=== PATIENT | female | born 1960 | race Two or more races ===

== ENCOUNTER 2024-04-24 14:35 | Emergency (ER) | payer SELFPAY ==
[~2024-04-24] VITALS: Ht 157.5 cm; Wt 79.5 kg
--- NOTE | 2024-04-24 15:21 | ED.PDOC ---
History of Present Illness HPI Comments 63 year old female presents to the ED with a chief complaint of anxiety onset 1 month. Patient states her about 1 month ago and since then has been experiencing anxiety, loss of appetite, lost about 30 lbs, cannot sleep and has not taken bipolar medication since then. Patient states she was dropped off by grandson to ED due to symptoms. PMHx bipolar disorder. Denies suicidal ideation, homicidal ideation, headache, dizziness, nausea, vomiting, diarrhea, cough, congestion. No other symptoms or modifying factors present at this time. Time Seen by MD: 15:00 Reviewed Notes: Medications, Allergies Information Source: Patient Mode of Arrival: Ambulatory Severity: Moderate Timing: Months Duration: Since onset Prehospital treatment: None Past Medical History Past Medical History (Other): Bipolar disorder Surgical History: Denies all surgeries BLOOD DONOR RECRUITER SUPERVISOR History: No Pertinent BLOOD DONOR RECRUITER SUPERVISOR History Family History Family History: Unknown Social History Smoker: Non-Smoker Alcohol: Denies ETOH Use Drugs: Denies Drug Use Lives In: Home Constitutional: denies: chills, diaphoresis, fatigue, fever, malaise, sweats, weakness, others EENTM: denies: blurred vision, double vision, ear bleeding, ear discharge, ear drainage, ear pain, ear ringing, eye pain, eye redness, hearing loss, mouth pain, mouth swelling, nasal discharge, nose bleeding, nose congestion, nose pain, photophobia, tearing, throat pain, throat swelling, voice changes, others Respiratory: denies: cough, hemoptysis, orthopnea, SOB at rest, shortness of breath, SOB with excertion, stridor, wheezing, others Cardiovascular: denies: chest pain, dizzy spells, diaphoresis, Dyspnea on exertion, edema, irregular heart beat, left arm pain, lightheadedness, palpitations, PND, syncope, others Gastrointestinal: reports: poor appetite; denies: abdomen distended, abdominal pain, blood streaked bowels, constipated, diarrhea, dysphagia, difficulty swallowing, hematemesis, melena, nausea, poor fluid intake, rectal bleeding, rectal pain, vomiting, others Genitourinary: denies: abnormal vagina bleeding, burning, dyspareunia, dysuria, flank pain, frequency, hematuria, incontinence, pain, , vagina discharge, urgency, others Neurological: denies: dizziness, fainting, headache, left sided numbness, left sided weakness, numbness, paresthesia, pre-existing deficit, right sided numbness, right sided weakness, seizure, speech problems, tingling, tremors, weakness, others Musculoskeletal: denies: back pain, gout, joint pain, joint swelling, muscle pain, muscle stiffness, neck pain, others Integumetry: denies: bruises, change in color, change in hair/nails, dryness, laceration, lesions, lumps, rash, wounds, others Allergic/Immunocompromised: denies: Difficulty Healing, Frequent Infections, Hives, Itching, others Hematologic/Lymphatic: denies: anemia, blood clots, easy bleeding, easy bruising, swollen glands, others Endocrine: denies: excessive hunger, excessive sweating, excessive thirst, excessive urination, flushing, intolerance to cold, intolerance to heat, unexplained weight gain, unexplained weight loss, others Psychiatric: reports: anxiety, bipolar disorder; denies: depression, hopeless, panic disorder, schizophrenia, sleepless, suicidal, others All Other Systems: Reviewed and Negative Physical Exam General Appearance: Moderate Distress, Normal HEENT: Normal ENT Inspection, Pharynx Normal, TMs Normal Neck: Full Range of Motion, Non-Tender, Normal, Normal Inspection Respiratory: Chest Non-Tender, Lungs Clear, No Accessory Muscle Use, No Respiratory Distress, Normal Breath Sounds Cardiovascular: No Edema, No JVD, No Murmur, No Gallop, Normal Peripheral Pu lses, Regular Rate/Rhythm Breast Exam: Deferred Gastrointestinal: No Organomegaly, Non Tender, No Pulsatile Mass, Normal Bowel Sounds, Soft Genitalia: Deferred Pelvic: Deferred Rectal: Deferred Extremities: No calf tenderness, Normal capillary refill, Normal inspection, Normal range of motion, Non-tender, No pedal edema Musculoskeletal : Apperance: Normal Neurologic: Alert, machine setter II-XII nml as Tested, No Motor Deficits, Normal Affect, Normal Mood, No Sensory Deficits Cerebellar Function: Normal Reflexes: Normal Skin: Dry, Normal Color, Warm Peripheral Pulses: 3+ Radial (R), 3+ Radial (L) Lymphatic: No Adenopathy Was a procedure done? Was a procedure done?: No Differential Dx Considerations may include: Depression Electrolyte imbalance X-Ray, Labs, Meds, VS Patient alert. Has a history of psychiatric illness. Vitals stable. Answering questions. She recently lost a loved one. She is not taking her bipolar medication. Denies suicidal or homicidal ideation. Medically cleared. Psychiatric evaluation. Time of 1ST Reevaluation: 15:30 Reevaluation 1ST: Improved Patient Education/Counseling: Diagnosis, Treatment, Prognosis Family Education/Counseling: No Family Present Departure 1 Departure Time of Disposition: 15:42 Impression: Primary Impression: Bipolar disorder Qualified Codes: F31.9 - Bipolar disorder, unspecified Disposition: 30 STILL A PATIENT Condition: Good Critical Care Note Critical Care Time?: No Stability Stability form required: No Heart Score Heart Score: Heart Score Response (Comments) Value History N/A 0 EKG N/A 0 Age N/A 0 Risk Factors N/A 0 Troponin N/A 0 Total 0 I personally scribed for VINAY LUNA MD ([email or web address]) on 04/24/24 at 15:21. Electronically submitted by Leydi Lockhart ([email or web address]). VINAY LUNA MD Apr 24, 2024 15:21
[2024-04-24 15:40] VITALS: BP 150/108; PULSE 111; RESP 20; O2SAT 100
[2024-04-24 18:54] LABS: Amphetamine Screen, Urine Neg (NEGATIVE); Barbiturate Scree,Urine Neg (NEGATIVE); Benzodiazephine Screen, Urine Neg (NEGATIVE); Cannabinoid Screen, Urine Neg (NEGATIVE); Cocaine Screen, Urine Neg (NEGATIVE); Opiate Scree,Urine Neg (NEGATIVE); Phencyclidine Screen, Urine Neg (NEGATIVE)
--- NOTE | 2024-04-25 01:14 | DVHINCON2 ---
Date of Service if different f: Apr 25, 2024 Time of Service: 01:05 Consult Consult Note It appears pt has eloped and is no longer in ED Plan discussed with: Other RIN SNELL MD Apr 25, 2024 01:14
== END 2024-04-25 01:12 | disposition left against medical advice (07) ==
LOC: ER 14:35
DX: F31.9 Bipolar disorder, unspecified (principal); F41.9 Anxiety disorder, unspecified; R63.0 Anorexia; Z79.899 Other long term (current) drug therapy
CPT/HCPCS: 80307

== ENCOUNTER 2024-06-17 20:34 | Emergency (ER) | payer SELFPAY ==
[~2024-06-17] VITALS: Ht 154.9 cm; Wt 63.6 kg
--- NOTE | 2024-06-17 20:51 | ED.PDOC ---
History of Present Illness HPI Comments 63-year-old female who came to ER via EMS for alcohol intoxication. Per EMS, family members called them due to behavioral issues of the patient. Patient currently intoxicated with alcohol. Patient states she is depressed due to the of her . Patient had an argument with family members earlier regarding going to [place] however family refused so patient started acting disgruntled and started drinking vodka. Patient denies being suicidal or homicidal. Denies any hallucinations. Blood pressure is 173/100 mmHg. Patient has poor compliance to her blood pressure medications. Chief Complaint: Alcohol intoxication Time Seen by MD: 20:51 Primary Care Provider: unknown Reviewed Notes: Laboratory Tech Notes Allergies: Coded Allergies: Penicillins (Verified Allergy, Severe, anaphylaxis, 04/24/24) Home Meds Active Scripts Cefdinir (Cefdinir) 300 Mg Cap, 1 CAP PO BID for 7 Days, #14 CAP Prov:ASHLEY VERDUGO MD 06/17/24 Information Source: Patient, Emergency Med Personnel Mode of Arrival: EMS Severity: Moderate Timing: Hours Duration: Since onset Prehospital treatment: None Past Medical History PAST MEDICAL HISTORY: HTN Surgical History: Denies all surgeries INCOME TAX MANAGER History: No Pertinent INCOME TAX MANAGER History Family History Family History: Reviewed,noncontributory to illness Social History Smoker: Non-Smoker Alcohol: Heavy Drugs: Denies Drug Use Lives In: Home Constitutional: denies: chills, diaphoresis, fatigue, fever, malaise, sweats, weakness, others EENTM: denies: blurred vision, double vision, ear bleeding, ear discharge, ear drainage, ear pain, ear ringing, eye pain, eye redness, hearing loss, mouth pain, mouth swelling, nasal discharge, nose bleeding, nose congestion, nose pain, photophobia, tearing, throat pain, throat swelling, voice changes, others Respiratory: denies: cough, hemoptysis, orthopnea, SOB at rest, shortness of breath, SOB with excertion, stridor, wheezing, others Cardiovascular: denies: chest pain, dizzy spells, diaphoresis, Dyspnea on exertion, edema, irregular heart beat, left arm pain, lightheadedness, palpitations, PND, syncope, others Gastrointestinal: denies: abdomen distended, abdominal pain, blood streaked bowels, constipated, diarrhea, dysphagia, difficulty swallowing, hematemesis, melena, nausea, poor appetite, poor fluid intake, rectal bleeding, rectal pain, vomiting, others Genitourinary: denies: abnormal vagina bleeding, burning, dyspareunia, dysuria, flank pain, frequency, hematuria, incontinence, pain, , vagina discharge, urgency, others Neurological: denies: dizziness, fainting, headache, left sided numbness, left sided weakness, numbness, paresthesia, pre-existing deficit, right sided numbness, right sided weakness, seizure, speech problems, tingling, tremors, weakness, others Musculoskeletal: denies: back pain, gout, joint pain, joint swelling, muscle pain, muscle stiffness, neck pain, others Integumetry: denies: bruises, change in color, change in hair/nails, dryness, laceration, lesions, lumps, rash, wounds, others Allergic/Immunocompromised: denies: Difficulty Healing, Frequent Infections, Hives, Itching, others Hematologic/Lymphatic: denies: anemia, blood clots, easy bleeding, easy bruising, swollen glands, others Endocrine: denies: excessive hunger, excessive sweating, excessive thirst, excessive urination, flushing, intolerance to cold, intolerance to heat, unexplained weight gain, unexplained weight loss, others Psychiatric: reports: depression, others (Intoxicated with alcohol); denies: anxiety, bipolar disorder, hopeless, panic disorder, schizophrenia, sleepless, suicidal Physical Exam General Appearance: No Apparent Distress, Normal HEENT: Normal ENT Inspection, Pharynx Normal, TMs Normal Neck: Full Range of Motion, Non-Tender, Normal, Normal Inspection Respiratory: Chest Non-Tender, Lungs Clear, No Accessory Muscle Use, No Respiratory Distress, Normal Breath Sounds Cardiovascular: No Edema, No JVD, No Murmur, No Gallop, Normal Peripheral Pulses, Regular Rate/Rhythm Breast Exam: Deferred Gastrointestinal: No Organomegaly, Non Tender, No Pulsatile Mass, Normal Bowel Sounds, Soft Genitalia: Deferred Pelvic: Deferred Rectal: Deferred Extremities: No calf tenderness, Normal capillary refill, Normal inspection, Normal range of motion, Non-tender, No pedal edema Musculoskeletal : Apperance: Normal Neurologic: Alert, starch crab II-XII nml as Tested, No Motor Deficits, Normal Affect, Normal Mood, No Sensory Deficits Cerebellar Function: Normal Reflexes: Normal Skin: Dry, Normal Color, Warm Lymphatic: No Adenopathy Was a procedure done? Was a procedure done?: No Differential Dx Considerations may include: Anxiety, depression, alcohol intoxication X-Ray, Labs, Meds, VS Vital Signs Date Time Temp Pulse Resp B/P (MAP) Pulse Ox O2 Delivery O2 Flow Rate FiO2 06/17/24 21:16 101 18 92 Room Air* 0 21 06/17/24 21:16 97.9 101 18 165/96 (119) 92 97.9 06/17/24 20:40 99.1 101 18 173/100 (124) 98 99.1 Lab Test 06/17/24 20:54 06/17/24 20:45 Range/Units White Blood Count 7.5 4.4-10.8 10^3/uL Red Blood Count 5.46 H 4.0-5.20 10^6/uL Hemoglobin 17.2 H 12.2-16.2 g/dL Hematocrit 51.2 H 36.0-46.0 % Mean Corpuscular Volume 93.8 80.0-100.0 fL Mean Corpuscular Hemoglobin 31.5 28.0-32.0 pg Mean Corpuscular Hemoglobin Concent 33.6 32.0-36.0 g/dL Red Cell Distribution Width 12.8 11.8-14.3 % Platelet Count 320 140-450 10^3/uL Mean Platelet Volume 8.2 6.9-10.8 fL Neutrophils (%) (Auto) 68.7 37.0-80.0 % Lymphocytes (%) (Auto) 25.6 10.0-50.0 % Monocytes (%) (Auto) 4.8 0.0-12.0 % Eosinophils (%) (Auto) 0.3 0.0-7.0 % Basophils (%) (Auto) 0.6 0.0-2.0 % Neutrophils # (Auto) 5.1 1.6-8.6 10 ^3/uL Lymphocytes # (Auto) 1.9 0.4-5.4 10 ^3/uL Monocytes # (Auto) 0.4 0-1.3 10 ^3/uL Eosinophils # (Auto) 0 0-0.8 10 ^3/uL Basophils # (Auto) 0 0-0.2 10 ^3/uL Nucleated Red Blood Cells 0.5 % Sodium Level 138 136-145 mmol/L Potassium Level 3.6 3.5-5.1 mmol/L Chloride Level 107 98-107 mmol/L Carbon Dioxide Level 22 20-31 mmol/L Anion Gap 9 5-15 Blood Urea Nitrogen 7 L 9-23 mg/dL Creatinine 0.74 0.550-1.02 mg/dL Glomerular Filtration Rate Calc 90 >90 mL/min BUN/Creatinine Ratio 9.5 L 10.0-20.0 Serum Glucose 95 74-106 mg/dL Calcium Level 10.6 H 8.7-10.4 mg/dL Total Bilirubin 0.2 0.2-1.0 mg/dL Aspartate Amino Transferase (AST) 21 13-40 U/L Alanine Aminotransferase (ALT) 15 7-40 U/L Alkaline Phosphatase 131 H 46-116 U/L Total Protein 8.4 H 5.7-8.2 g/dL Albumin 4.6 3.2-4.8 g/dL Salicylates Level < 3.0 -30 mg/dL Acetaminophen Level < 2.0 L 10.0-20.0 UG/ML Plasma/Serum Blood Alcohol 211.9 H <10 mg/dL Urine Color Colorless Yellow Urine Clarity Clear Clear Urine pH 5.5 5.0-9.0 Urine Specific [place] 1.004 1.001-1.035 Urine Protein Negative Negative Urine Ketones Negative Negative Urine Blood Negative Negative /uL Urine Nitrite Negative Negative Urine Bilirubin Negative Negative Urine Urobilinogen Normal Negative mg/dL Urine Leukocyte Esterase 1+ Negative /uL Urine RBC 1 0 - 4 /hpf Urine Microscopic WBC 4 0-5 /HPF Urine Squamous Epithelial Cells None seen <5 /hpf Urine Bacteria Few H None Seen /hpf Urine Glucose Normal Normal mg/dL Time of 1ST Reevaluation: 20:46 Reevaluation 1ST: Unchanged Patient Education/Counseling: Diagnosis, Treatment Family Education/Counseling: No Family Present Departure 1 Departure Time of Disposition: 00:30 Impression: Primary Impression: Alcohol intoxication Additional Impressions: Bipolar disorder UTI (urinary tract infection) Disposition: 01 HOME / SELF CARE / HOMELESS Condition: Stable e-Prescriptions Cefdinir (Cefdinir) 300 Mg Cap 1 CAP PO BID for 7 Days, #14 CAP Prov: ASHLEY VERDUGO MD 06/17/24 Discharged With: Self Critical Care Note Critical Care Time?: No Stability Stability form required: No Heart Score Heart Score: Heart Score Response (Comments) Value History N/A 0 EKG N/A 0 Age N/A 0 Risk Factors N/A 0 Troponin N/A 0 Total 0 I personally scribed for ASHLEY VERDUGO MD ([email or web address]) on 06/17/24 at 20:51. Electronically submitted by Jason Cr ([facility]). I personally scribed for ASHLEY VERDUGO MD ([email or web address]) on 06/17/24 at 20:57. Electronically submitted by Jason Cr ([facility]). ASHLEY VERDUGO MD Jun 17, 2024 20:51
[2024-06-17 21:16] VITALS: BP 165/96; PULSE 101; RESP 18; TEMP 97.9; O2SAT 92
[2024-06-17 21:17] LABS: Basophils # (auto) 0 10 ^3/uL (0-0.2); Basophils % (auto) 0.6 % (0.0-2.0); Eosinophils # (auto) 0 10 ^3/uL (0-0.8); Eosinophils % (auto) 0.3 % (0.0-7.0); Hematocrit 51.2 % (36.0-46.0); Hemoglobin 17.2 g/dL (12.2-16.2); Lymphocytes # (auto) 1.9 10 ^3/uL (0.4-5.4); Lymphocytes % (auto) 25.6 % (10.0-50.0); Mean Corpuscular Hemoglobin 31.5 pg (28.0-32.0); Mean Corpuscular Hgb Conc. 33.6 g/dL (32.0-36.0); Mean Corpuscular Volume 93.8 fL (80.0-100.0); Monocytes # (auto) 0.4 10 ^3/uL (0-1.3); Monocytes % (auto) 4.8 % (0.0-12.0); Neutrophils # (auto) 5.1 10 ^3/uL (1.6-8.6); Neutrophils % (auto) 68.7 % (37.0-80.0); Nucleated Red Blood Cells % 0.5 %; Platelet Count (auto) 320 10^3/uL (140-450); Red Blood Cells 5.46 10^6/uL (4.0-5.20); Red Cell Distribution Width 12.8 % (11.8-14.3); White Blood Cell 7.5 10^3/uL (4.4-10.8)
[2024-06-17] MEDS: cloNIDine HCL 0.1 MG TAB PO ONE (21:21)
[2024-06-17] MEDS: ACETAMINOPHEN 325 MG TAB PO ONE (21:21)
[2024-06-17 21:30] LABS: Urine Bacteria FEW /hpf (None Seen); Urine Blood Negative /uL (Negative); Urine Clarity Clear (Clear); Urine Color Colorless (Yellow); Urine Protein, UAD Negative (Negative); Urine Specific Gravity 1.004 (1.001-1.035); Urine Squamous Epithelial Cell None Seen /hpf (<5); Urine Urobilinogen Normal (Negative); Urine WBC 4 /HPF (0-5); Urine pH 5.5 (5.0-9.0)
[2024-06-17 21:44] LABS: Alanine Aminotransferase 15 U/L (7-40); Albumin 4.6 g/dL (3.2-4.8); Alkaline Phosphatase 131 U/L (46-116); Anion Gap 9 (5-15); Aspartate Aminotransferase 21 U/L (13-40); BUN/Creatinine Ratio 9.5 (10.0-20.0); Bilirubin, Total 0.2 mg/dL (0.2-1.0); Blood Alcohol 211.9 mg/dL (<10); Blood Urea Nitrogen 7 mg/dL (9-23); Calcium 10.6 mg/dL (8.7-10.4); Carbon Dioxide 22 mmol/L (20-31); Chloride 107 mmol/L (98-107); Glucose 95 mg/dL (74-106); Potassium 3.6 mmol/L (3.5-5.1); Sodium 138 mmol/L (136-145); Total Protein 8.4 g/dL (5.7-8.2)
[2024-06-17 21:58] LABS: Acetaminophen < 2.0 UG/ML (10.0-20.0); Salicylate < 3.0 mg/dL (-30)
[2024-06-17] MEDS ORDERED: CEFD300C2 PO (22:27)
== END 2024-06-17 23:40 | disposition home or self-care (01) ==
LOC: EDBD 20:34 → ER 20:34
DX: F10.129 Alcohol abuse with intoxication, unspecified (principal); F31.9 Bipolar disorder, unspecified; N39.0 Urinary tract infection, site not specified; I10 Essential (primary) hypertension; Z88.0 Allergy status to penicillin; Z79.899 Other long term (current) drug therapy; Y90.9 Presence of alcohol in blood, level not specified
CPT/HCPCS: 36415; 80053; 80320; 80329; 81001; 85025

== ENCOUNTER 2025-02-15 01:00 | Emergency (ER) | payer MEDICARE, OTHER ==
[~2025-02-15] VITALS: Ht 160 cm; Wt 59.1 kg
[~2025-02-15 01:00] MED LIST: CEFD300C2 PO
[2025-02-15 02:36] LABS: Hematocrit 47.9 % (36.0-46.0); Hemoglobin 16.4 g/dL (12.2-16.2); Mean Corpuscular Hemoglobin 30.9 pg (28.0-32.0); Mean Corpuscular Volume 90.1 fL (80.0-100.0); Nucleated Red Blood Cells % 0.1 %
[2025-02-15 02:46] LABS: Sodium 140 mmol/L (136-145)
[2025-02-15 02:47] LABS: Anion Gap 7 (5-15); Carbon Dioxide 25 mmol/L (20-31); Chloride 108 mmol/L (98-107); Potassium 3.0 mmol/L (3.5-5.1)
[2025-02-15 02:48] LABS: Calcium 10.2 mg/dL (8.7-10.4)
[2025-02-15 02:52] LABS: BUN/Creatinine Ratio 14.8 (10.0-20.0)
[2025-02-15 02:54] LABS: Blood Urea Nitrogen 9 mg/dL (9-23); Glucose 108 mg/dL (74-106)
--- NOTE | 2025-02-15 03:54 | DVHINCON2 ---
Date of Service if different f: Feb 15, 2025 Time of Service: 03:32 Consult Consult Note PSYCHIATRY ED NEW CONSULT HPI: 64 yo pt with PPH of depression, bipolar, and anxiety presents to ED for med refill of buspar 15 mg qd and quetiapine 200 mg qhs. Psychiatry consulted for safety evaluation and recommendations in context of current presentation Currently rxd above meds for primary tx of depression/anxiety. Tolerating meds without any adverse effects, notes modest therapeutic effects. Denies med misuse/abuse/diversion. Ran out of meds several days ago, has been on current med regimen for several years rxd by previous outpt MH provider. No EPS/TD/NMS/anticholinergic/orthostasis reported. Does not currently have outpt MH services established at this time although in process of establishing care in subsequent months Currently endorses mild depressed mood but denies hopelessness/helplessness, low self-worth, or anhedonia. Denies anxiety/panic/OCD/PTSD symptoms. Also denies AVH/paranoia/catatonic/perceptual disturbances/personality changes. Sleep/appetite/energy/conc are all relatively stable/at baseline. Adamantly denies SI/HI. Denies acute psychosocial stressors although continues to grieve loss of from CVA in 2023 Does not have active outpt MH services established at this time although has sought outpt MH services in recent past but lost connectivity due to insurance issues Currently rxd lamictal 200 mg qd, trazodone 100 mg qhs,buspar 15 mg qd (needs refill), quetiapine 200 mg qhs (needs refill) no prior psych med trials, overall med compliant with modest therapeutic effects, some hx of med noncompliance noted DIPAK hx: Denies ETOH, THC or IDU prior to admission although mild hx of ETOH dependency, last drank over 3 weeks ago SH: with 3 adult children with limited contact, resides with grandson, unemployed, limited support system noted (immediate family). Unknown trauma hx FH: Denies FH of psych hospitalizations, suicide attempts, or completed suicides PMH: +HTN. No acute medical/chronic pain issues, hx of seizures/TBI, HIV/hep C, cardiac dz, or recent head injuries, allergic to PCN Denies hx of SIB/SA/PSG or Several prior psych hospitalizations for depression - last admission in 2023. Denies history of violence, aggression, or assaultive behaviors. Denies any legal problems. Does not have access to firearms. Identifies self/family as PPF. No acute safety concerns noted during encounter MSE: General Appearance/Behavior: Alert/awake; appears stated age, fair grooming/hygiene; calm/polite and cooperative, fair eye contact, no PMA/PMR Speech: coherent, rrr Thought Process: L/L/GD Thought Content: Abnormal Thoughts/Perceptions: denies dissociative symptoms Homicidality / Violent Thoughts: adamantly denies HI Suicidality: adamantly denies SI Hallucinations: denies AVTH Delusions: denies paranoia, persecutory, or grandiose delusions Obsessions /compulsions: None Judgment/Insight: fair/fair Mood & Affect: "bit sad" with mood-congruent, somewhat restricted/appropriate Orientation: oriented x 3 Attention/Concentratit s appears intact Cognition: grossly intact Assessment: 64 yo pt with PPH of depression, bipolar, and anxiety presents to ED for med refill of buspar 15 mg qd and quetiapine 200 mg qhs Currently denies SI/HI/AVH. Linear and appears future oriented in thought with fair J/I, intact reality testing, and genuine in discourse. No overt manic, psychotic, MDD, cognitive, dissociative, panic, OCD, PTSD, or somatic symptoms noted. No hx of SA/SIB/violence/physical aggression is reassuring Does not presently show any signs of immediate danger to self/others or GD that would necessitate 5150 or involuntary psych admission. Acute suicide/violence risk appears nonexistent to relatively low. Chronic risks mitigated by med management, access to psychiatric care, and supportive services Pts symptoms should be managed safely in an outpatient setting - currently does not have psychiatrist/therapist out in community hence recently ran out of above meds, primarily presents to ED seeking med refill of both meds, recommend 30 day rx for both meds with 1 R No indication to change current med regimen Primary Diagnosis: Bipolar disorder unspecified. ETOH use d/o, unspecified Plan: Does not warrant involuntary inpatient psychiatric hospitalization or 5150 hold No acute safety concerns Pt can be safely discharged back to current residence Resume above current outpatient psychotropics - lamictal 200 mg qd, trazodone 100 mg qhs,buspar 15 mg qd (needs refill), quetiapine 200 mg qhs (needs refill) No med changes or additional meds indicated at this time Supportive tx provided Strongly encouraged f/u with outpatient MH providers (upon establishing care) for ongoing therapy/med management Encouraged f/u with PCP for routine medical/preventive care Instructed pt to call/text [phone] or return to ED if MH symptoms worsen or new onset SI/HI upon discharge Pt verbalized understanding and is receptive to above tx plan This case was discussed with ED nurse/provider and all parties in agreement with above tx plan Jeffrey Garsia MD Plan discussed with: Patient JEFFREY GARSIA MD Feb 15, 2025 03:54
--- NOTE | 2025-02-15 03:55 | ED.PDOC ---
History of Present Illness HPI Comments 64-year-old female presents with chief complaint of depression. Significant history for bipolar disorder, depression, and hypertension. Patient reports on, initially, being brought to the ED after entering a depressive episode, this morning, and telling her grandson on having suicidal ideations. Patient takes no medications currently for depression. She denies being suicidal, currently. Denial of any further symptoms, such as auditory or visual hallucinations or homicidal ideations. REVIEW OF SYSTEMS: General: No fever, no chills, HEENT: No neck pain, no blurred vision Cardiac: No chest pain. No palpitations. Lungs: No shortness of breath, GI: No abdominal pain, no vomiting Musculoskeletal: No joint pain , no back pain Skin: No rash, no wound Neuro: No headache, no dizziness, no syncope Psychiatric: Depression PHYSICAL EXAM: General: Awake, alert and oriented. No acute distress. Skin: Skin in warm, dry and intact without rashes or lesions. HEENT: The head is normocephalic and atraumatic. Conjunctivae are clear without exudates or hemorrhage. Sclera is non-icteric. Neck: Normal range of motion. No JVD. Cardiac: Regular rate Respiratory: No signs of respiratory distress. No Stridor. Extremities: Upper and lower extremities are atraumatic in appearance without deformity. Neurological: The patient is awake, alert and oriented to person, place, and time with normal speech. Speech is clear. There is no facial asymmetry. Psychiatric: Appropriate mood and affect. Good judgement and insight. Chief Complaint: Mental Health Time Seen by MD: 01:49 Primary Care Provider: unknown Reviewed Notes: Nurses Notes, Medications, Allergies Allergies: Coded Allergies: Penicillins (Verified Allergy, Severe, anaphylaxis, 04/24/24) Home Meds Active Scripts Cefdinir (Cefdinir) 300 Mg Cap, 1 CAP PO BID for 7 Days, #14 CAP Prov:ASHLEY VERDUGO MD 06/17/24 Information Source: Patient Mode of Arrival: EMS Severity: Moderate Timing: Hours Duration: Since onset Prehospital treatment: None Past Medical History PAST MEDICAL HISTORY: Depression, HTN Past Medical History (Other): Bipolar disorder Surgical History: Denies all surgeries [employer]PER[employer]OR History: No 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 Was a procedure done?: No Differential Dx Considerations may include: Depression, suicidal ideation, adjustment disorder, psychosis, bipolar disorder, other X-Ray, Labs, Meds, VS Vital Signs Date Time Temp Pulse Resp B/P (MAP) Pulse Ox O2 Delivery O2 Flow Rate FiO2 02/15/25 01:05 98.8 76 16 163/102 97 98.8 Lab Test 02/15/25 02:18 Range/Units White Blood Count 5.6 4.4-10.8 10^3/uL Red Blood Count 5.32 H 4.0-5.20 10^6/uL Hemoglobin 16.4 H 12.2-16.2 g/dL Hematocrit 47.9 H 36.0-46.0 % Mean Corpuscular Volume 90.1 80.0-100.0 fL Mean Corpuscular Hemoglobin 30.9 28.0-32.0 pg Mean Corpuscular Hemoglobin Concent 34.3 32.0-36.0 g/dL Red Cell Distribution Width 13.4 11.8-14.3 % Platelet Count 319 140-450 10^3/uL Mean Platelet Volume 7.5 6.9-10.8 fL Neutrophils (%) (Auto) 52.4 37.0-80.0 % Lymphocytes (%) (Auto) 39.9 10.0-50.0 % Monocytes (%) (Auto) 6.7 0.0-12.0 % Eosinophils (%) (Auto) 0.4 0.0-7.0 % Basophils (%) (Auto) 0.6 0.0-2.0 % Neutrophils # (Auto) 3.0 1.6-8.6 10 ^3/uL Lymphocytes # (Auto) 2.3 0.4-5.4 10 ^3/uL Monocytes # (Auto) 0.4 0-1.3 10 ^3/uL Eosinophils # (Auto) 0 0-0.8 10 ^3/uL Basophils # (Auto) 0 0-0.2 10 ^3/uL Nucleated Red Blood Cells 0.1 % Sodium Level 140 136-145 mmol/L Potassium Level 3.0 L 3.5-5.1 mmol/L Chloride Level 108 H 98-107 mmol/L Carbon Dioxide Level 25 20-31 mmol/L Anion Gap 7 5-15 Blood Urea Nitrogen 9 9-23 mg/dL Creatinine 0.61 0.550-1.02 mg/dL Glomerular Filtration Rate Calc 99 >90 mL/min BUN/Creatinine Ratio 14.8 10.0-20.0 Serum Glucose 108 H 74-106 mg/dL Calcium Level 10.2 8.7-10.4 mg/dL Plasma/Serum Blood Alcohol 62.5 H <10 mg/dL Time of 1ST Reevaluation: 03:52 Reevaluation 1ST: Unchanged Patient Education/Counseling: Other (Need for ED observation) Family Education/Counseling: No Family Present SEPSIS Sepsis Screen Date sepsis recognized/suspect: Feb 15, 2025 Time Sepsis recognized/suspect: 104 Recent Procedure: No On Antibiotic Therapy: No Respiratory Rate >20: No Heart Rate >90: No Temp<36 C (96.8 F) or >38.3 C: No SBP <90 or MAP <65 mmHG: No New Acute Mental Status Change: No Is the patient on CPAP, BIPAP,: No Physician Orders * Psychiatric Consult (02/15/25 02:21) Sitter At Bedside (02/15/25 01:56) Urinalysis (02/15/25 01:56) Drug Screen (02/15/25 01:56) Soc Telemed Psych Consult (02/15/25 01:56) Vital Signs Date Time Temp Pulse Resp B/P (MAP) Pulse Ox O2 Delivery O2 Flow Rate FiO2 02/15/25 01:05 98.8 76 16 163/102 97 98.8 Laboratory Tests Test 02/15/25 02:18 White Blood Count 5.6 10^3/uL (4.4-10.8) Departure 1 Departure Time of Disposition: 03:53 Impression: Primary Impression: Depression Additional Impression: Suicidal thoughts Disposition: 02 [facility] Additional Instructions: ED DISCHARGE INSTRUCTIONS Instructions: Please read all instructions provided in this packet carefully. Although you have been discharged from the Emergency Department, this does not mean that you have a "clean bill of health". No definitive diagnosis for your symptoms has been made today. It is possible that you are in the process of developing a serious illness. This is why you must return to the ED without fail if any new or worsening symptoms (especially if your symptoms include chest pain, trouble breathing, abdominal pain, fever, headache, confusion, trouble seeing, or trouble walking) It is also very important that you see a primary care provider (PCP) within the next 3-5 days to follow up. Your hemoglobin was elevated today and your potassium was low. Your primary care provider will need to rechecked these tests. If you are unable to get an appointment, return to the ED for re-evaluation. Where to get help 24 hours a day, 7 days a week Call the Suicide and Crisis Lifeline at 948. Call 6-159-874-ZNUT ( ). Text HOME to 544413 to access the Crisis Text Line. Consider saving these numbers in your phone. Go to [employer] for more information or to chat online. e-Prescriptions Quetiapine Fumerate (QUETIAPINE FUMARATE) 200 Mg Tab 200 MG PO QHSP for 30 Days, #30 TAB Prov: JONATHAN YOON MD 02/15/25 Buspirone Hcl (Buspirone Hcl) 15 Mg Tab 1 TAB PO DAILY, #30 TAB Prov: JONATHAN YOON MD 02/15/25 Comments MDM: 64-year-old female with depression. Case discussed with psychiatrist Dr. Garsia who evaluated patient and recommends discharge with 30 day refill of her medications. Patient is stable for discharge home with her grandson. Extensive evaluation was performed in attempt to identify or rule out: (See differential diagnosis section) The following tests were ordered, and results were reviewed by me and discussed with patient: (See diagnostic results section) The following test were independently interpreted by me: BMP, blood alcohol, drug screen, UA, CBC Decision regarding hospitalization or escalation of hospital level of care: Risks and benefits of admission for further treatment of patient's condition was considered however due to patient's stable condition patient will be discharged to follow up closely or return to care for worsening of condition or inability to follow up. Critical Care Note Critical Care Time?: No Stability Stability form required: No Heart Score Heart Score: Heart Score Response (Comments) Value History N/A 0 EKG N/A 0 Age N/A 0 Risk Factors N/A 0 Troponin N/A 0 Total 0 I personally scribed for JONATHAN YOON MD ([email or web address]) on 02/15/25 at 05:37. Electronically submitted by Igor Worley ([email or web address]). JONATHAN YOON MD Feb 15, 2025 03:55
[2025-02-15] MEDS ORDERED: BUSP15TA60 PO (05:47)
[2025-02-15] MEDS ORDERED: QUET200T45 PO (05:47)
[2025-02-15 05:55] VITALS: BP 137/91; TEMP 98.5
[2025-02-15] MEDS: POTASSIUM CHL 20 Meq TABLET PO ONE (06:03)
[2025-02-15] MEDS: IBUPROFEN 600 MG TAB PO ONE (06:03)
[2025-02-15 06:20] VITALS: PULSE 78; RESP 18; O2SAT 98
== END 2025-02-15 06:45 | disposition home or self-care (01) ==
LOC: EDBD 01:00 → ER 01:00
DX: F32.A Depression, unspecified (principal); R45.851 Suicidal ideations; I10 Essential (primary) hypertension; Z79.899 Other long term (current) drug therapy; Z88.0 Allergy status to penicillin
CPT/HCPCS: 36415; 80048; 80320; 85025